=== PATIENT | female | born 1940 | race Caucasian/White ===

== ENCOUNTER → 2019-12-10 09:53 | Outpatient (BNVA) | payer MEDICARE, OTHER, SELFPAY | PROVIDERS: Family Provider Internal Medicine; Visit Provider Internal Medicine | DX: M81.0 Age-related osteoporosis without current pathological fracture (principal); D86.9 Sarcoidosis, unspecified; D64.9 Anemia, unspecified; R53.83 Other fatigue; Z79.899 Other long term (current) drug therapy | CPT/HCPCS: 36415; 80053; 82306; 82310; 82550; 82728; 83540; 83970; 84100; 84443; 85025; 99213 ==

== ENCOUNTER → 2020-05-18 09:24 | Outpatient (BNVA) | payer MEDICARE, OTHER, SELFPAY | PROVIDERS: Family Provider Internal Medicine; Visit Provider Internal Medicine | DX: M81.0 Age-related osteoporosis without current pathological fracture (principal); M79.7 Fibromyalgia; N18.9 Chronic kidney disease, unspecified | CPT/HCPCS: 99213 ==

== ENCOUNTER → 2021-05-17 09:20 | Outpatient (BNVA) | payer MEDICARE, SELFPAY | PROVIDERS: Family Provider Internal Medicine; Visit Provider Internal Medicine | DX: M81.0 Age-related osteoporosis without current pathological fracture (principal); M19.90 Unspecified osteoarthritis, unspecified site; R29.898 Other symptoms and signs involving the musculoskeletal system; Z79.899 Other long term (current) drug therapy | CPT/HCPCS: 99213; 99214 ==

== ENCOUNTER → 2022-06-05 13:23 | Outpatient (BNVA) | payer MEDICARE, OTHER, SELFPAY | PROVIDERS: PCP Internal Medicine; Visit Provider Internal Medicine | DX: R29.898 Other symptoms and signs involving the musculoskeletal system (principal); M19.90 Unspecified osteoarthritis, unspecified site | CPT/HCPCS: 99214 ==

== ENCOUNTER → 2022-06-05 14:13 | Outpatient (BNVA) | payer MEDICARE, OTHER, SELFPAY | PROVIDERS: PCP Internal Medicine; Visit Provider Internal Medicine | DX: R29.898 Other symptoms and signs involving the musculoskeletal system (principal); M81.0 Age-related osteoporosis without current pathological fracture; M43.16 Spondylolisthesis, lumbar region; M19.042 Primary osteoarthritis, left hand | CPT/HCPCS: 72100; 73120; 73521; 99214 ==

== ENCOUNTER 2022-06-15 13:46 | Outpatient (CLI) | payer MEDICARE, OTHER, SELFPAY ==
--- NOTE | 2022-06-15 14:30 | XR_ITS ---
WS: [id number] DEXA (DUAL ENERGY X-RAY ABSORPTIOMETRY) Bone mineral density was performed using a [employer] machine. HISTORY: M81.0 - Age-related osteoporosis without current pathology... COMPARISON: 12/26/2018 Lumbar spine BMD (L1-L4): 1.166 g/cm2 T score: -0.1 Z score: 1.0 Total hip BMD: Left: 0.860 g/cm2. T score: -1.2 Z score: 0.4 Right: 0.851 g/cm2. T score: -1.2 Z score: 0.3 10 year probability of a major osteoporotic fracture is 22.2%. Compared to the prior study from 12/26/2018. Lumbar spine bone mineral density has decreased by 6.0%. Bilateral hips bone mineral density has decreased by 8.3%. XR/XR DEXA axial skeleton* 28040 IMPRESSION: OSTEOPENIA based upon the WHO classification for females. Significant decrease in bone mineral density within the lumbar spine and hips s osman the prior study.
== END 2022-06-15 13:47 | disposition home or self-care (01) ==
LOC: RAD 13:49
PROVIDERS: PCP Internal Medicine; Visit Provider Internal Medicine
DX: M81.0 Age-related osteoporosis without current pathological fracture (principal); M19.90 Unspecified osteoarthritis, unspecified site; R29.898 Other symptoms and signs involving the musculoskeletal system
CPT/HCPCS: 77080; 99214

== ENCOUNTER 2022-08-17 14:20 | Outpatient (CLI) | payer MEDICARE, OTHER, SELFPAY ==
--- NOTE | 2022-08-17 14:30 | MM_ITS ---
WS: [email or web address] VIEWS: MLO and CC views both breasts. 3D digital tomosynthesis is also included in this exam. Comparison made with prior exam of 04/05/2005, 05/02/2007, 06/23/2014, 07/21/2015, 11/16/2016, 12/13/2017. Findings: There was no sign of mass, architectural distortion or suspicious calcification in either breast. Th ere are scattered areas of fibroglandular density MM/[place] [id number] Impression: BI-RADS: 2-Benign finding FOLLOW-UP: 1 Year Follow-up This mammogram was also analyzed by the Computer Aided Detection System R2 Imag e Loan Clerk.
== END 2022-08-17 14:21 | disposition home or self-care (01) ==
PROVIDERS: PCP Internal Medicine; Visit Provider Internal Medicine
DX: Z12.31 Encounter for screening mammogram for malignant neoplasm of breast (principal)
CPT/HCPCS: 77063; 77067

== ENCOUNTER → 2022-08-28 13:52 | Outpatient (BNVA) | payer MEDICARE, OTHER, SELFPAY | PROVIDERS: PCP Internal Medicine; Visit Provider Internal Medicine | DX: M81.0 Age-related osteoporosis without current pathological fracture (principal); M19.90 Unspecified osteoarthritis, unspecified site; M54.50 Low back pain, unspecified; R29.898 Other symptoms and signs involving the musculoskeletal system | CPT/HCPCS: 99214 ==

== ENCOUNTER → 2022-10-19 10:38 | Outpatient (BNVA) | payer MEDICARE, OTHER, SELFPAY | PROVIDERS: PCP Internal Medicine; Visit Provider Anesthesiology Pain Medicine | DX: M54.16 Radiculopathy, lumbar region (principal); M48.062 Spinal stenosis, lumbar region with neurogenic claudication; M43.16 Spondylolisthesis, lumbar region; M47.816 Spondylosis without myelopathy or radiculopathy, lumbar region | CPT/HCPCS: 99204 ==

== ENCOUNTER 2022-11-23 09:56 | Outpatient (CLI) | payer MEDICARE, OTHER, SELFPAY ==
--- NOTE | 2022-11-23 10:15 | MR_ITS ---
WS: [id number] MRI LUMBAR SPINE NONCONTRAST HISTORY: M54.16 - Radiculopathy, lumbar region COMPARISON: None available. TECHNIQUE: Sagittal and axial multisequence imaging is submitted. Straightening and slight reversal the normal lumbar lordosis with mild curvature. L3 retrolisthesis b y 3.6 mm. L4 retrolisthesis by 3.9 mm. Disc spaces are narrowed throughout the lumbar spine. No acute fracture. Conus terminates normally at L1. T10-11: Shallow LEFT central disc protrusion. No disc contact on the cord. L1-L2: Mild annular disc bulging with ligamentum flavum and facet arthritis. No stenosis. L2-L3: Mild diffuse annular disc bulging with osteophytic ridging. LEFT foraminal disc protrusion is shallow. Mild ligamentum flavum and facet arthritis. Very mild central and bilateral subarticular rec ess stenosis. L3-L4: Annular disc bulging with retrolisthesis of the L3 vertebral body. RIGHT subarticular disc pro trusion extends into the subarticular recess and contacts the traversing RIGHT L4 nerve root. Disc al so contacts to a lesser extent the traversing LEFT L4 nerve root. Moderate central, bilateral subarti cular recess and RIGHT foraminal stenosis. Mild LEFT foraminal stenosis prior L4-L5: Mild annular disc bulging with facet joint arthritis and vertebral body osteophytes. Severe RI GHT facet joint arthritis. Mild central stenosis. Disc contacts the traversing L5 nerve roots in the subarticular recesses. Moderate bilateral foraminal and subarticular recess encroachment. There is na rrowing and encroachment upon the L4 and L5 nerve roots bilaterally. L5-S1: Mild disc bulging. Very shallow central disc protrusion. No high-grade stenosis. Bilateral fac et joint arthritis. IMPRESSION: 1. Straightening and slight reversal normal lumbar lordosis. 2. Retrolisthesis of L3 and L4 by 3.6 and 3.9 mm respectively. 3. L3-4: Moderate central, bilateral subarticular recess and RIGHT foraminal stenosis. RIGHT subartic ular disc protrusion with significant contact on the traversing RIGHT L4 nerve root. 4. L4-5: Severe RIGHT facet joint arthritis. Mild central stenosis. Moderate bilateral foraminal and subarticular recess stenosis with contact on the L4 and L5 nerve roots. 5. L2-3: Mild central and bilateral subarticular recess stenosis.
== END 2022-11-23 09:57 | disposition home or self-care (01) ==
PROVIDERS: PCP Internal Medicine; Visit Provider Anesthesiology Pain Medicine
DX: M47.26 Other spondylosis with radiculopathy, lumbar region (principal); M40.56 Lordosis, unspecified, lumbar region; M43.16 Spondylolisthesis, lumbar region; M48.061 Spinal stenosis, lumbar region without neurogenic claudication; M51.26 Other intervertebral disc displacement, lumbar region
CPT/HCPCS: 72148

== ENCOUNTER → 2022-11-29 10:46 | Outpatient (BNVA) | payer MEDICARE, OTHER, SELFPAY | PROVIDERS: PCP Internal Medicine; Visit Provider Anesthesiology Pain Medicine | DX: M48.062 Spinal stenosis, lumbar region with neurogenic claudication (principal); M43.16 Spondylolisthesis, lumbar region; M48.061 Spinal stenosis, lumbar region without neurogenic claudication | CPT/HCPCS: 99215 ==

== ENCOUNTER → 2023-07-06 09:49 | Outpatient (BNVA) | payer MEDICARE, OTHER, SELFPAY | PROVIDERS: PCP Internal Medicine; Visit Provider Podiatrist Foot & Ankle Surgery | DX: L60.0 Ingrowing nail (principal) | CPT/HCPCS: 99203 ==

== ENCOUNTER 2024-05-19 14:40 | Emergency (ER) | payer MEDICARE, OTHER, SELFPAY ==
--- NOTE | 2024-05-19 14:42 | XR_ITS ---
WS: [id number] XR chest 1V portable [id number] REASON FOR EXAM: cough FINDINGS: Poor inspiratory effort. Moderate ectasia and tortuosity of the thoracic aorta. Normal heart size. Calcified granulomas disease in both hemithoraces. Atelectasis in the right lung base. Vaguely increased density and reticular lung opacities in the left lower lung field which may be the result of the poor inspiratory effort. Possibly early pneumonitis. XR/XR chest 1V portable [id number] IMPRESSION: Left lung changes which may be due to poor inspiratory effort however early pne umonitis cannot be excluded. If possible a better inspiratory chest x-ray could be helpful.
[2024-05-19 14:51] VITALS: BP 206/96; PULSE 84; TEMP 36.4; O2SAT 95; BMI 32.3
--- NOTE | 2024-05-19 14:57 | ECG_ITS ---
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
[2024-05-19 16:35] LABS: Influenza A NEGATIVE (Negative); Influenza B NEGATIVE (Negative); Respiratory Syncytial Virus Ce NEGATIVE (Negative); SARS-CoV-2 PCR NEGATIVE (Negative)
[2024-05-19 16:36] VITALS: RESP 14; O2SAT 95
[2024-05-19] MEDS: morphine 4 mg/mL SDV 1 mL IVP (16:36)
[2024-05-19] MEDS: ondansetron 2 mg/ML SDV 2 mL 4 MG IVP (16:36)
--- NOTE | 2024-05-19 16:36 | CTR_ITS ---
PROCEDURE INFORMATION: Exam: CTA Chest With Contrast Exam date and time: 05/19/2024 7:35 PM Age: 83 years old Clinical indication: Other: SOB; Shortness of breath; Prior surgery; Surgery date: 6+ months; Surgery type: Gb, hysterectomy TECHNIQUE: Imaging protocol: Computed tomographic angiography of the chest with contrast. Exam focused on the arteries. 3D rendering (Not supervised by radiologist): MIP and/or 3D reconstructed images were created by the technologist. Radiation optimization: All CT scans at this facility use at least one of these dose optimization techniques: automated exposure control; mA and/or kV adjustment per patient size (includes targeted exams where dose is matched to clinical indication); or iterative reconstruction. Contrast material: OMNIPAQUE; Contrast volume: 100 ml; Contrast route: INTRAVENOUS (IV); COMPARISON: CR XR chest 1V portable [id number] 05/19/2024 3:45 PM RADIATION DOSE METRICS: Total DLP (mGy-cm): 1279.38 FINDINGS: Pulmonary arteries: No acute central or segmental pulmonary embolism. Aorta: Aortic aneurysm. Moderate aortic atherosclerosis. Thyroid: No actionable thyroid nodules by size criteria. Lungs: Streaky pleural-based opacities in the posterior lower lobes and left inferior lingula. Pleural spaces: No pleural effusion or pneumothorax. Heart: No pericardial effusion. Coronary arteries: Minimal coronary artery calcification. Lymph nodes: Calcified lymph nodes are present, consistent with sequela of prior granulomatous disease. Diaphragm: Asymmetric right hemidiaphragm elevation. Small hiatal hernia. Bones/joints: No acute fracture. Degenerative changes. Soft tissues: Unremarkable. PROCEDURE INFORMATION: Exam: CT Abdomen And Pelvis With Contrast Exam date and time: 05/19/2024 7:35 PM Age: 83 years old Clinical indication: Other: SOB; Shortness of breath; Prior surgery; Surgery date: 6+ months; Surgery type: Gb, hysterectomy TECHNIQUE: Imaging protocol: Computed tomography of the abdomen and pelvis with contrast. Radiation optimization: All CT scans at this facility use at least one of these dose optimization techniques: automated exposure control; mA and/or kV adjustment per patient size (includes targeted exams where dose is matched to clinical indication); or iterative reconstruction. Contrast material: OMNIPAQUE; Contrast volume: 100 ml; Contrast route: INTRAVENOUS (IV); COMPARISON: CR XR hip BI 2V wo/w pel [id number] 06/05/2022 2:20 PM RADIATION DOSE METRICS: Total DLP (mGy-cm): 1279.38 FINDINGS: Diaphragm: Asymmetric right hemidiaphragm elevation. Small hiatal hernia. Liver: Liver is unremarkable. Gallbladder and biliary ducts: Cholecystectomy. Pancreas: Pancreas is unremarkable. Spleen: Spleen is unremarkable. Splenic granulomas, otherwise unremarkable. Adrenal glands: No nodules. Kidneys and ureters: Kidneys and ureters are unremarkable. Stomach and bowel: No bowel obstruction. Colonic diverticulosis without findings of acute diverticulitis. Moderate colonic stool burden. Appendix: No evidence of appendicitis. Intraperitoneal space: No free air. No significant fluid collection. Vasculature: No aortic aneurysm. Moderate aortic atherosclerosis. Lymph nodes: No enlarged lymph nodes. Urinary bladder: Bladder is unremarkable as visualized. Reproductive: Hysterectomy. Bones/joints: No acute fracture. Degenerative changes. Soft tissues: Small fat containing umbilical hernia. CT/CT angio chest w abd pel w con IMPRESSION: 1. No acute central or segmental pulmonary embolism. 2. Streaky pleural-based opacities in the posterior lower lobes and left inferior lingula, most likely atelectasis. Superimposed aspiration or infiltrate not definitively excluded. IMPRESSION: No acute findings.
[2024-05-19 16:39] LABS: Basophils % 0.4 %; Eosinophils % 0.1 %; Hematocrit 45.2 % (36-47); Lymphocytes # 1.1 10^3/uL (0.8-4.8); Lymphocytes % 12.4 %; Mean Corpuscular HGB Conc 33.4 g/dL (30-55); Mean Corpuscular Hemoglobin 29.2 pg (27-33); Mean Corpuscular Volume 87.4 fl (85-98); Mean Platelet Volume 9.8 fL (7.4-10.4); Monocytes # 0.5 10^3/uL (0.2-0.9); Monocytes % 5.2 %; Neutrophils # 7.48 10^3/uL (1.8-7.7); Neutrophils % 81.6 %; Nucleated Red Blood Cells % 0 %; Platelet Count 265 10^3/cmm (157-399); Red Blood Count 5.17 10^6/uL (3.85-5.65); White Blood Count 9.18 10^3/uL (3.29-11.43)
--- NOTE | 2024-05-19 16:42 | W.ED.URI ---
HPI - URI/Sore Throat General: Chief Complaint: Upper Respiratory Infection Stated Complaint: Fever,Cough,chest pressure Time Seen by Provider: 05/19/24 16:00 Source: patient Mode of arrival: ambulatory Limitations: no limitations History of Present Illness: 83-year-old female who states that over the last 2 to 3 days she is not felt well states she has had cough congestion she has been having some chest pain shortness of breath she is also been having abdominal pain. States she is felt nauseous denies any vomiting. She denies any fever she denies any worsening improving factors. Rates her pain a 4 out of 10 currently Associated symptoms: Reports abdominal pain and chest pain; Deny chills, fever(s) or headache(s) Related Data Home Medications ?Medication ?Instructions ?Recorded ?Confirmed cetirizine 10 mg tablet (Zyrtec) 5 mg PO DAILY PRN 12/10/19 07/06/23 citalopram 20 mg tablet 20 mg PO DAILY 12/10/19 07/06/23 duloxetine 60 mg capsule,delayed 60 mg PO DAILY 12/10/19 07/06/23 release (Cymbalta) fluticasone propionate 50 2 spray intranasal DAILY 12/10/19 07/06/23 mcg/actuation nasal spray,suspension (Children's Flonase Allergy Relief) pantoprazole 40 mg tablet,delayed 40 mg PO BID 12/10/19 07/06/23 release polyethylene glycol 3350 17 17 gm PO DAILY 12/10/19 07/06/23 gram/dose oral powder (Miralax) pregabalin 150 mg capsule (Lyrica) 150 mg PO BID 12/10/19 07/06/23 Previous Rx's ?Medication ?Instructions ?Recorded celecoxib 100 mg capsule (Celebrex) 100 mg PO BID #60 caps 08/28/22 tizanidine 4 mg capsule 4 mg PO BID PRN muscle spasticity 08/28/22 #30 caps ondansetron 4 mg disintegrating 4 mg PO Q6H PRN nausea and 05/19/24 tablet vomiting #14 tabs Allergies Allergy/AdvReac Type Severity Reaction Status Date / Time sulfamethoxazole (From Allergy Unknown Verified 05/19/24 15:02 Bactrim) trimethoprim (From Bactrim) Allergy Unknown Verified 05/19/24 15:02 Review of Systems Const: Reports: fatigue and malaise; Denies: fever(s), chills, body aches or change in appetite ENMT: Denies: throat pain or dental pain Card: Reports: chest pain Resp: Reports: dyspnea and non-productive cough GI: Reports: abdominal pain Musc: Denies: neck pain or back pain Skin/Breast: Denies: rash Neuro: Denies: headache(s) PFSH ED PFSH: Medical History Osteoarthritis Fibromyalgia Fatigue Postmenopausal osteoporosis Family History Brother Cancer Mother Diabetes Father Hypertension Social History Smoking and tobacco/nicotine status: never used tobacco/nicotine Alcohol intake: never Substance/Drug Use: never Physical Exam Const: COMMON NORMALS: no acute distress, patient oriented x3 and healthy appearing HENMT: COMMON NORMALS: normocephalic and atraumatic HEAD & SCALP: normocephalic and atraumatic Eye: COMMON NORMALS: Equal, round and reactive pupils present and EOMs intact bilaterally PUPIL: Yes Equal, round and reactive pupils present Neck/C-Spine: COMMON NORMALS: full ROM and supple Chest: COMMONS NORMALS: normal inspection of the chest and normal palpation of entire chest wall Resp: COMMON NORMALS: normal respiratory effort, No retractions, No use of accessory muscles and clear to auscultation bilaterally AUSCULTATION: clear to auscultation bilaterally Cardio: COMMON NORMALS: regular rate, regular rhythm and No murmurs present (Cardio) RATE: regular rate RHYTHM: regular rhythm GI: COMMON NORMALS: Normal to inspection, nondistended, normoactive bowel sounds present, Soft to palpation, non-tender and no masses PALPATION: Yes Soft to palpation Extremity: COMMON NORMALS: normal to inspection and full ROM Neuro: COMMON NORMALS: patient oriented x3, moves all extremities and no focal motor deficits Psych: COMMON NORMALS: mental status grossly normal, Normal thought process present and cooperative THOUGHT PROCESS: Normal thought process present Skin: COMMON NORMALS: no rashes or lesions noted and no wounds GENERAL SKIN EXAM: no rashes or lesions noted Course Vital Signs: Vital signs: Vital Signs Temperature 97.6 F 05/19/24 14:51 Pulse Rate 90 05/19/24 18:30 Respiratory Rate 14 05/19/24 16:36 Blood Pressure 173/94 05/19/24 18:30 Pulse Oximetry 90 05/19/24 18:30 Oxygen Delivery Me thod Room Air 05/19/24 17:30 MDM - URI/Sore Throat Medical Decision Making Patient presents here with abdominal pain has been having some nausea also just feeling unwell all of her blood work here is normal CT chest abdomen pelvis showed no acute findings patient's troponin is normal as well no signs of any infection we will start her on Zofran she does feel improved here she is follow-up with her PCP return if worsening. Medical Records I reviewed the patient's medical records. Lab Data I reviewed the patient's lab results. 05/19/24 16:25 05/19/24 17:50 Radiology Impressions Chest X-Ray 05/19/24 14:42 IMPRESSION: Left lung changes which may be due to poor inspiratory effort however early pneumonitis cannot be excluded. If possible a better inspiratory chest x-ray could be helpful. Chest/Abdomen/Pelvis CT 05/19/24 16:36 IMPRESSION: 1. No acute central or segmental pulmonary embolism. 2. Streaky pleural-based opacities in the posterior lower lobes and left inferior lingula, most likely atelectasis. Superimposed aspiration or infiltrate not definitively excluded. IMPRESSION: No acute findings. Laboratory Results WBC 9.18 10^3/uL (3.29-11.43) 05/19/24 16: RBC 5.17 10^6/uL (3.85-5.65) 05/19/24 16:25 Hgb 15.10 g/dL (11.27-16.99) 05/19/24 16: Hct 45.2 % (36-47) 05/19/24 16: MCV 87.4 fl (85-98) 05/19/24 16:25 MCH 29.2 pg (27-33) 05/19/24 16: MCHC 33.4 g/dL (30-55) 05/19/24 16: RDW 14.0 % (12.1-15.1) 05/19/24 16: Plt Count 265 10^3/cmm (157-399) 05/19/24 16:25 MPV 9.8 fL (7.4-10.4) 05/19/24 16:25 Neut % (Auto) 81.6 % 05/19/24 16:25 Lymph % (Auto) 12.4 % 05/19/24 16:25 [place] % (Auto) 5.2 % 05/19/24 16:25 Eos % (Auto) 0.1 % 05/19/24 16:25 Baso % (Auto) 0.4 % 05/19/24 16:25 Neut # (Auto) 7.48 10^3/uL (1.8-7.7) 05/19/24 16: Lymph # (Auto) 1.1 10^3/uL (0.8-4.8) 05/19/24 16:25 [place] # (Auto) 0.5 10^3/uL (0.2-0.9) 05/19/24 16:25 Eos # (Auto) 0.0 10^3/uL (0.0-0.8) 05/19/24 16:25 Baso # (Auto) 0.0 10^3/uL (0.0-0.1) 05/19/24 16: Nucleated RBC % (auto) 0 % 05/19/24 16: Nucleated RBCs # 0.0 /100WBC 05/19/24 16:25 PT 12.80 SECONDS (12.1-14.9) 05/19/24 16: INR 0.90 (0.8-1.2) 05/19/24 16:25 Sodium 138 mmol/L (136-145) 05/19/24 17:50 Potassium 4.2 mmol/L (3.5-5.1) 05/19/24 17:50 Chloride 102 mmol/L (98-107) 05/19/24 17:50 Carbon Dioxide 24 mmol/L (22-29) 05/19/24 17:50 Anion Gap 16.2 (5-19) 05/19/24 17:50 BUN 18 mg/dL (8-23) 05/19/24 17:50 Creatinine 0.9 mg/dL (0.5-0.9) 05/19/24 17:50 GFR Calculation Not Reportable 05/19/24 17:50 Glucose 103 mg/dL (65-115) 05/19/24 17:50 Calculated Osmolality 288 mOsm/kg (285-295) 05/19/24 17:50 Calcium 9.0 mg/dL (8.5-10.5) 05/19/24 17:50 Total Bilirubin 0.6 mg/dL (0.15-1.2) 05/19/24 17:50 AST 47 U/L (0-32) H 05/19/24 17:50 ALT 23 U/L (0-33) 05/19/24 17:50 Alkaline Phosphatase 85 U/L (35-105) 05/19/24 17:50 Troponin T Baseline 9 ng/L (0-10) 05/19/24 17:50 NT-Pro-B Natriuret Pep 330 pg/mL (0-450) 05/19/24 17:50 Total Protein 7.0 g/dL (6.6-8.7) 05/19/24 17:50 Albumin 4.5 g/dL (3.5-5.2) 05/19/24 17:50 Globulin 2.5 g/dL (1.3-4.6) 05/19/24 17:50 Lipase 14 U/L (13-60) 05/19/24 17:50 Influenza A (PCR) Negative (Negative) 05/19/24 15:05 Influenza Type B (PCR) Negative (Negative) 05/19/24 15:05 RSV (PCR) Negative (Negative) 05/19/24 15:05 SARS-CoV-2 (PCR) Negative (Negative) 05/19/24 15:05 All radiology interpretation(s) finalized by discharge EKG Data EKG 1: I personally reviewed and interpreted this EKG as follows: EKG interpretation date: 05/19/24 EKG interpretation time: 16:47 Interpretation: nsr hr [address] elevation qrs 86 qtc 440 Discharge Plan Discharge Patient Disposition: Home Clinical Impression: Abdominal pain, Nausea Condition: Stable Prescriptions: New ondansetron 4 mg tablet,disintegrating 4 mg PO Q6H PRN (Reason: nausea and vomiting) Qty: 14 0RF No Action cetirizine [Zyrtec] 10 mg tablet 5 mg PO DAILY PRN citalopram 20 mg tablet 20 mg PO DAILY pantoprazole 40 mg tablet,delayed release (DR/EC) 40 mg PO BID polyethylene glycol 3350 [Miralax] 17 gram/dose powder 17 gm PO DAILY fluticasone propionate [Children's Flonase Allergy Rlf] 50 mcg/actuation spray,suspension 2 spray INTRANASAL DAILY Rx Instructions: administer into each nostril duloxetine [Cymbalta] 60 mg capsule,delayed release(DR/EC) 60 mg PO DAILY pregabalin [Lyrica] 150 mg capsule 150 mg PO BID tizanidine 4 mg capsule 4 mg PO BID PRN (Reason: muscle spasticity) Qty: 30 0RF celecoxib [Celebrex] 100 mg capsule 100 mg PO BID Qty: 60 0RF Discharge Orders: Discharge ED (Routine); Ordered 05/19/24 Ordered By: Ladarius Mann Referrals: Jl Boone DO [Primary Care Provider] - Discharge Diet: Advance as tolerated Discharge Activity: Resume usual activity Patient Instructions: Abdominal Pain (ED) Print Language: Bengali Coding Level of Care Code ED Field Automobile Adjuster for Fay Becker
[2024-05-19 17:02] VITALS: BP 179/95; PULSE 82; O2SAT 90
[2024-05-19 17:30] VITALS: BP 166/99; PULSE 82; O2SAT 91
--- NOTE | 2024-05-19 18:05 | ECG_ITS ---
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
[2024-05-19 18:30] VITALS: BP 173/94; PULSE 90; O2SAT 90
[2024-05-19 18:57] LABS: Troponin(5th) Baseline 9 ng/L (0-10)
[2024-05-19 19:14] LABS: Alanine Aminotransferase 23 U/L (0-33); Albumin Level 4.5 g/dL (3.5-5.2); Alkaline Phosphatase 85 U/L (35-105); Anion Gap 16.2 (5-19); Aspartate Amino Transferase 47 U/L (0-32); Blood Urea Nitrogen 18 mg/dL (8-23); Carbon Dioxide 24 mmol/L (22-29); Chloride 102 mmol/L (98-107); Creatinine Clr Calc Pharmacy 54.6767; Globulin 2.5 g/dL (1.3-4.6); Glucose 103 mg/dL (65-115); Lipase 14 U/L (13-60); NT Pro B Type Natriuretic Pept 330 pg/mL (0-450); Osmolality Calculated 288 mOsm/kg (285-295); Potassium 4.2 mmol/L (3.5-5.1); Sodium 138 mmol/L (136-145); Total Bilirubin 0.6 mg/dL (0.15-1.2)
[2024-05-19] MEDS: iohexol 350 mg/mL 500 mL Btl (per mL) IV (19:37)
[2024-05-19 20:38] VITALS: BP 143/83; PULSE 80; RESP 16; O2SAT 91
== END 2024-05-19 20:39 | disposition home or self-care (01) ==
PROVIDERS: Emergency Provider Emergency Medicine; PCP Internal Medicine
DX: R10.9 Unspecified abdominal pain (principal); R11.0 Nausea; Z11.52 Encounter for screening for COVID-19
CPT/HCPCS: 36415; 71045; 71275; 74177; 80053; 83690; 83880; 84484; 85025; 85610; 87637; 93005; 96374; 96375; 99285; J2270; J2405

== ENCOUNTER 2024-06-17 05:00 | Outpatient (RCR) | payer MEDICARE, OTHER, SELFPAY | END 2024-07-16 23:59 | disposition home or self-care (01) | LOC: GPT 05:00 | PROVIDERS: Visit Provider Family Medicine | DX: M54.9 Dorsalgia, unspecified (principal) | CPT/HCPCS: 97110; 97112; 97140; 97161 ==

== ENCOUNTER 2024-07-17 06:30 | Outpatient (RCR) | payer MEDICARE, OTHER, SELFPAY | END 2024-08-16 23:59 | disposition home or self-care (01) | LOC: GPT 06:30 | PROVIDERS: Visit Provider Family Medicine | DX: M54.9 Dorsalgia, unspecified (principal) | CPT/HCPCS: 97110; 97112; 97140; 97164; 97530 ==

== ENCOUNTER 2024-08-17 05:00 | Outpatient (RCR) | payer MEDICARE, OTHER, SELFPAY | END 2024-09-15 23:59 | disposition home or self-care (01) | LOC: GPT 05:00 | PROVIDERS: Visit Provider Family Medicine | DX: M54.9 Dorsalgia, unspecified (principal) | CPT/HCPCS: 97110; 97112; 97140; 97530 ==

== ENCOUNTER 2024-09-16 06:30 | Outpatient (RCR) | payer MEDICARE, SELFPAY | END 2024-10-16 23:59 | disposition home or self-care (01) | LOC: GPT 06:30 | PROVIDERS: Visit Provider Family Medicine | DX: M54.9 Dorsalgia, unspecified (principal) | CPT/HCPCS: 97110; 97112; 97140; 97530 ==

== ENCOUNTER → 2024-09-22 09:15 | Outpatient (BNVA) | payer MEDICARE, SELFPAY | PROVIDERS: Visit Provider Nurse Practitioner Family | DX: L57.8 Other skin changes due to chronic exposure to nonionizing radiation (principal); L81.4 Other melanin hyperpigmentation; L82.1 Other seborrheic keratosis; D48.5 Neoplasm of uncertain behavior of skin; C43.21 Malignant melanoma of right ear and external auricular canal; R20.8 Other disturbances of skin sensation; L57.0 Actinic keratosis | CPT/HCPCS: 11102; 17000; 69100; 99203 ==

== ENCOUNTER → 2024-10-15 10:17 | Outpatient (BNVA) | payer MEDICARE, SELFPAY | PROVIDERS: Visit Provider Dermatology | DX: C44.719 Basal cell carcinoma of skin of left lower limb, including hip (principal); D03.21 Melanoma in situ of right ear and external auricular canal | CPT/HCPCS: 11642; 13152; 99213 ==

== ENCOUNTER → 2024-10-22 09:22 | Outpatient (BNVA) | payer MEDICARE, OTHER, SELFPAY | PROVIDERS: Visit Provider Dermatology | DX: L82.1 Other seborrheic keratosis (principal); Z08 Encounter for follow-up examination after completed treatment for malignant neoplasm; Z85.828 Personal history of other malignant neoplasm of skin; Z85.820 Personal history of malignant melanoma of skin; L81.4 Other melanin hyperpigmentation; C44.719 Basal cell carcinoma of skin of left lower limb, including hip | CPT/HCPCS: 17313; 99213 ==

== ENCOUNTER → 2024-11-03 09:08 | Outpatient (BNVA) | payer MEDICARE, OTHER, SELFPAY | PROVIDERS: Visit Provider Dermatology | DX: C44.321 Squamous cell carcinoma of skin of nose (principal); C44.719 Basal cell carcinoma of skin of left lower limb, including hip | CPT/HCPCS: 15271; 99213; Q4186 ==

== ENCOUNTER → 2024-11-10 09:51 | Outpatient (BNVA) | payer MEDICARE, OTHER, SELFPAY | PROVIDERS: Visit Provider Dermatology | DX: C44.321 Squamous cell carcinoma of skin of nose (principal); C44.719 Basal cell carcinoma of skin of left lower limb, including hip | CPT/HCPCS: 15271; 99213; Q4186 ==

== ENCOUNTER → 2024-11-19 11:18 | Outpatient (BNVA) | payer MEDICARE, OTHER, SELFPAY | PROVIDERS: Visit Provider Dermatology | DX: C44.321 Squamous cell carcinoma of skin of nose (principal); Z08 Encounter for follow-up examination after completed treatment for malignant neoplasm; Z85.820 Personal history of malignant melanoma of skin; C44.719 Basal cell carcinoma of skin of left lower limb, including hip | CPT/HCPCS: 15271; 99213 ==

== ENCOUNTER → 2024-12-01 10:48 | Outpatient (BNVA) | payer MEDICARE, OTHER, SELFPAY | PROVIDERS: Visit Provider Dermatology | DX: C44.229 Squamous cell carcinoma of skin of left ear and external auricular canal (principal) | CPT/HCPCS: 15271 ==

== ENCOUNTER → 2024-12-10 11:38 | Outpatient (BNVA) | payer MEDICARE, OTHER, SELFPAY | PROVIDERS: Visit Provider Dermatology | DX: C44.719 Basal cell carcinoma of skin of left lower limb, including hip (principal) | CPT/HCPCS: 99213 ==

== ENCOUNTER → 2024-12-24 12:46 | Outpatient (BNVA) | payer MEDICARE, OTHER, SELFPAY | PROVIDERS: Visit Provider Dermatology | DX: C44.719 Basal cell carcinoma of skin of left lower limb, including hip (principal) | CPT/HCPCS: 99213 ==

== ENCOUNTER → 2025-01-14 11:47 | Outpatient (BNVA) | payer MEDICARE, OTHER, SELFPAY | PROVIDERS: Visit Provider Dermatology | DX: C44.719 Basal cell carcinoma of skin of left lower limb, including hip (principal) | CPT/HCPCS: 99213 ==

== ENCOUNTER → 2025-02-04 11:29 | Outpatient (BNVA) | payer MEDICARE, OTHER, SELFPAY | PROVIDERS: Visit Provider Dermatology | DX: C44.719 Basal cell carcinoma of skin of left lower limb, including hip (principal); Z85.820 Personal history of malignant melanoma of skin; Z08 Encounter for follow-up examination after completed treatment for malignant neoplasm; Z85.828 Personal history of other malignant neoplasm of skin | CPT/HCPCS: 99213 ==